=== PATIENT | female | born 1980 | race Caucasian/White ===

== ENCOUNTER → 2017-09-09 | Outpatient (REF) ==
[2005-01-16 16:55] VITALS: PULSE 93; TEMP 98.3
[~2017-09-09] MED LIST: CLINDAGEL 40 ML40 ML TP; PRENATAL VITAMI1 TA5 PO; PROAIR HFA0.09 MG/AC IH; QVAR0.08 MG/AC IH; RT SPIRIVA18 MCG IH; SINGULAIR 110 MG/TAB PO; WELLBUTRIN SR150 M1 PO
== END ==
LOC: ZLAB.WCH 17:51
DX: Z01.89 Encounter for other specified special examinations (principal)

== ENCOUNTER → 2018-04-28 | Outpatient (REF) ==
[2005-01-16 16:55] VITALS: PULSE 93; TEMP 98.3
[~2018-04-28] MED LIST changes: +CONCERTA36 MG PO; +NORCO 325 MG-51 TAB PO; +WELLBUTRIN XL300 M1 PO
== END ==
LOC: ZLAB.WCH 08:34
DX: Z01.89 Encounter for other specified special examinations (principal)